=== PATIENT | male | born 1995 | race American Indian/Alaskan Native ===

== ENCOUNTER 2020-01-28 13:40 | Emergency (ER) | payer SELFPAY ==
[2020-01-28 13:47] VITALS: BP 96/63
[2020-01-28] MEDS ORDERED: IBUPROFEN 800 MG TAB PO ONE (15:06)
--- NOTE | 2020-01-28 15:11 | Emergency Department Report ---
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 He is in no acute distress he smokes half a pack of cigarettes per day and reports a history of childhood asthma. He denies fever and shortness of breath. Patient states that 3 months ago he was positive for Covid 19 he did not require hospitalization. He is not taking any meds at home -: days(s) (3) Location: head, chest Quality: aching, sharp Improves with: none Worsens with: none Associated Symptoms: chest pain, cough, headaches. 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 Other details as noted in HPI ED Past Medical Hx - Past Medical History Previous Medical History?: Yes Hx Asthma: Yes - Surgical History Past Surgical History?: No - Social History Smoking Status: Current Every Day Smoker - Medications Home Medications: Home Medications Medication Instructions Recorded Confirmed Last Taken Type Ibuprofen [Motrin] 600 mg PO Q8H PRN #21 tablet 01/28/20 Unknown Rx ED Physical Exam - General Limitations: No Limitations General appearance: alert, in no apparent distress - Head Head exam: Present: atraumatic - Eye Eye exam: Present: normal appearance - ENT ENT exam: Present: normal exam, normal orophraynx, mucous membranes moist, TM's normal bilaterally - Neck Neck exam: Present: normal inspection. Absent: tenderness, lymphadenopathy - Respiratory Respiratory exam: Present: normal lung sounds bilaterally. Absent: respiratory distress, wheezes, rales, rhonchi, stridor, chest wall tenderness - Cardiovascular Cardiovascular Exam: Present: regular rate, normal heart sounds - Extremities Exam Extremities exam: Present: normal inspection - Back Exam Back exam: Present: normal inspection - Neurological Exam Neurological exam: Present: alert, oriented X3 - Skin Skin exam: Present: warm, dry, intact ED Course Vital Signs 01/28/20 01/28/20 13:45 16:10 Temperature 98.0 F Pulse Rate 61 Respiratory 14 18 Rate Blood Pressure 96/63 O2 Sat by Pulse 98 Oximetry - Reevaluation(s) Reevaluation #1: 01/28/20 16:20 Patient ambulatory in room states he is ready to go after receiving ibuprofen his headache is now gone he is not coughing he is in no distress chest x-ray with no acute findings patient doing well ED Medical Decision Making - EKG Data EKG shows normal: sinus rhythm Rate: bradycardia (rate of 52) - Radiology Data Radiology results: report reviewed FINDINGS: SUPPORT DEVICES: None. HEART / MEDIASTINUM: No significant abnormality. LUNGS / PLEURA: No significant pulmonary or pleural abnormality. No pneumothorax. ADDITIONAL FINDINGS: No significant additional findings. IMPRESSION: 1. No acute findings. - Medical Decision Making 25-year-old male complaining of headache chest pain with cough his headache was relieved with Motrin 800. Chest x-ray showed no acute findings. Patient does admit to be under a lot of stress states he is the father of 4 children and has been working a lot .currently doing well and he is ready to go home. Discussed with patient smoking cessation he verbalized understanding Critical care attestation.: If time is entered above; I have spent that time in minutes in the direct care of this critically ill patient, excluding procedure time. ED Disposition Clinical Impression: Chest wall pain URI (upper respiratory infection) Qualifiers: URI type: unspecified viral URI Qualified Code(s): J06.9 - Acute upper respiratory infection, unspecified Disposition: DC-01 TO HOME OR SELFCARE Is pt being admited?: No Does the pt Need Aspirin: No Condition: Stable Instructions: Upper Respiratory Infection, Adult, Viral Respiratory Infection, [id number], Chest Wall Pain, Chest Pain (ED) Additional Instructions: Drink lots of clear fluids which include water apple juice. Stay away from milk products for 1 week. Stop smoking cigarettes. Follow-up with your primary care doctor in 3 to 5 days if no improvement or worsening symptoms Prescriptions: Ibuprofen [Motrin] 600 mg PO Q8H PRN #21 tablet PRN Reason: Pain Referrals: PRIMARY CAREMD [Primary Care Provider] - 3-5 Days SAMMI QUIGLEY MD [Staff Physician] - 3-5 Days Forms: Work/School Release Form(ED) Time of Disposition: 16:35
--- NOTE | 2020-01-28 17:00 | XRay Report ---
CHEST 2 VIEWS INDICATION / CLINICAL INFORMATION: MAIN. COMPARISON: None available. FINDINGS: SUPPORT DEVICES: None. HEART / MEDIASTINUM: No significant abnormality. LUNGS / PLEURA: No significant pulmonary or pleural abnormality. No pneumothorax. ADDITIONAL FINDINGS: No significant additional findings. IMPRESSION: 1. No acute findings. Signer Name: Dae Rouse MD Signed: 01/28/2020 4:56 PM Workstation Name: [id number]
== END 2020-01-28 16:36 | disposition home or self-care (01) ==
LOC: ED 13:40
DX: J06.9 Acute upper respiratory infection, unspecified (principal); R07.89 Other chest pain; J45.909 Unspecified asthma, uncomplicated; F17.200 Nicotine dependence, unspecified, uncomplicated; Z79.899 Other long term (current) drug therapy; Z91.041 Radiographic dye allergy status
CPT/HCPCS: 71046; 93005; 99283